=== PATIENT | male | born 1955 | race Caucasian/White ===

== ENCOUNTER → 2019-09-24 | Outpatient (CLI) | payer MEDICARE, OTHER | LOC: COL.RAD 09:58 | DX: Z13.6 Encounter for screening for cardiovascular disorders (principal); F17.210 Nicotine dependence, cigarettes, uncomplicated ==

== ENCOUNTER 2019-10-18 06:59 | Day surgery (SDC) | payer MEDICARE, OTHER ==
[2019-10-18] VITALS (7 sets, daily range): BP systolic 92–137; BP diastolic 58–80; PULSE 58–75; TEMP 97.4–97.5
[~2019-10-18] VITALS: Ht 185.4 cm; Wt 69.8 kg
--- NOTE | 2019-10-18 10:22 | NUR ---
PT RETURNED FROM ENDO OR SUITE INTO BAY#3. PT ALERT TO NAME AND SLEEPY. AMBULATED WITH 2X ASSIST TO CHAIR. DAUGHTER PRESENT IN ROOM WITH HIM. BP 95/58 AND SATS 92% PT ALERT TO NAME, TIME AND PLACE WHEN ASKED. LUNGS CLEAR, DIMINISHED. HRR, BS PRESENT. REQUESTS TOAST AND COFFE WITH CREAMER. DENIES NAUSEA OR PAIN AT THIS TIME. WILL CONT TO MONITOR PROGRESS.
--- NOTE | 2019-10-18 10:27 | NUR ---
PT TOLERATING FOOD AND FLUIDS WITHOUT NAUSEA OR VOMITING. DENIES PAIN OR DISCOMFORT AT THIS TIME. CONTINUES TO BE HYPOTENSIVE, PT ALERT, ORIENTATED. HRR, SATS 90% ON RA. DENIES DYSPNEA. TALKING WITH DAUGHTER. WILL CONT TO MONITOR.
--- NOTE | 2019-10-18 10:32 | NUR ---
PT A/OX3, DENIES SHORTNESS OF BREATH. APPLIED O2 PER NC TO SUPPLEMENT SATS. PT STATES,' IM A SMOKER, NOT SURPRISED ABOUT MY OXYGEN'. DENIES USING O2 AT HOME. WILL CONT TO MONITOR PROGRESS. DENIES NAUSEA OR PAIN, TALKING WITH DAUGHTER.
--- NOTE | 2019-10-18 10:38 | NUR ---
SATS UP TO 93%, DENIES SHORTNESS OF BREATH, ALERT AND ORIENTATED. DENIES PAIN OR NAUSEA, WILL MONITOR.
--- NOTE | 2019-10-18 10:39 | NUR ---
PT REMOVED FROM SUPPLEMENTAL O2, SATS REMAIN ABOVE 90 AND AT 93%. PT MORE AWAKE, ALERT AND ORIENTATED. TOLERATING FOOD AND FLUIDS, DENIES PAIN OR NAUSEA IV DC'D PER RIGHT HAND. TOLERATED WELL. DISCHARGE INSTRUCTIONS GIVEN, PT VOICED UNDERSTANDING DID HIS DAUGHTER. PT DISCHARGED PER WC TO PT VEHICLE, DAUGHTER DRIVING.
== END 2019-10-18 09:55 | disposition home or self-care (01) ==
LOC: SDCO 06:59
DX: Z12.11 Encounter for screening for malignant neoplasm of colon (principal)
CPT/HCPCS: G0121; J2250; J3010; J7030